=== PATIENT | male | born 1970 | race Hispanic/Latino ===

== ENCOUNTER 2018-04-11 11:24 | Day surgery (SDC) | payer SELFPAY ==
[2018-04-10 09:13] VITALS: BMI 36.9
[~2018-04-11 11:24] MED LIST: ceFAZolin IV 1 gm in Dextrose 0 GM/0 ML BAG IVPB ONE
[2018-04-11] MEDS ORDERED: Bupivacaine HCl 0.5% PF (30 ml) Inj ONE (13:36)
[2018-04-11] MEDS ORDERED: ceFAZolin IV 1 gm in Dextrose 1 GM/50 ML BAG IVPB ONE ×2 (13:36→13:49)
[2018-04-11] MEDS ORDERED: Midazolam 2 MG/2 ML VIAL ONE (13:41)
[2018-04-11] MEDS ORDERED: Propofol 10 mg/ml Inj (20 ML) ONE (13:41)
[2018-04-11] MEDS ORDERED: Lidocaine Hydrochloride 5 ML INJ ONE (13:41)
[2018-04-11] MEDS: Bupivacaine 0.25% 20 ML INJ IJ ONE ×2 (14:04→14:44)
[2018-04-11] MEDS: Bacitracin 500 Units/gm Oint Foilpak UD ONE ×2 (14:05→14:44)
--- NOTE | 2018-04-11 14:51 | PCM.SURG1 ---
Surgeon's Initial Post Op Note - Surgeon's Notes Surgeon: mora Payable Manager: none Type of Anesthesia: General Endo Anesthesia Administered By: Pre-Operative Diagnosis: phimosis. Operative Findings: phimosis Post-Operative Diagnosis: phimosis Operation Performed: circumcision Specimen/Specimens Removed: foreskin Estimated Blood Loss: EBL {In ML}: 5 Blood Products Given: N/A Drains Used: No Drains Post-Op Condition: Good Date of Surgery/Procedure: 04/11/18 Time of Surgery/Procedure: 14:52
[2018-04-11] MEDS ORDERED: Lactated Ringer's 1,000 ML IV SCH (15:15)
[2018-04-11] MEDS ORDERED: HYDROmorphone 0.5 mg/0.5 ml ISec IVP PRN (15:15)
[2018-04-11 16:33] VITALS: RESP 16
[2018-04-11 18:14] VITALS: BP 113/68; PULSE 75; TEMP 98; O2SAT 99
--- NOTE | 2018-04-13 01:39 | OP ---
PROCEDURE DATE: 04/11/2018 PREOPERATIVE DIAGNOSIS: Phimosis. POSTOPERATIVE DIAGNOSIS: Phimosis. FINDINGS: Phimosis, chronic inflammation of prepuce, meatal opening, adequate. SURGEON: Raf Cardenas MD GROSS FINDINGS: Phimosis, redundant foreskin, and mild inflammation with the prepuce. TECHNIQUE: This patient was placed in supine position. The external genitalia were prepped and draped in the usual sterile fashion. A dorsal and ventral slit incisions were performed. Two flaps of mucosa on the skin were developed. These two flaps were excised. Bleeders were thoroughly fulgurated. Some bleeders were clamped and ligated with 3-0 chromic. Then, the mucosa of the skin were reapproximated with interrupted stitches of 3-0 chromic. No bleeding was present after the procedure. Marcaine 0.25% were infiltrated in the base of the penis. Bacitracin ointment was applied at the line of suturing. Dressing was applied. The patient withstood the procedure well and returned to recovery room in satisfactory condition. Raf Cardenas MD
== END 2018-04-11 18:43 | disposition home or self-care (01) ==
LOC: C.SDS 11:24
PROVIDERS: ATTEND Urology
DX: N47.1 Phimosis (principal); N39.0 Urinary tract infection, site not specified
CPT/HCPCS: 54161; 88304; J0690; J1170; J2250; J2704; J3010

== ENCOUNTER 2018-06-22 17:58 | Emergency (ER) | payer SELFPAY ==
[2018-06-22 17:58] VITALS: BMI 36.9
[2018-06-22 18:12] VITALS: BP 127/79; PULSE 60; RESP 20; TEMP 98.5; O2SAT 100
--- NOTE | 2018-06-22 18:49 | C.PDOC ---
History Of Present Illness 47 y/o M c no PMHx p/w chest pain x 2 days. State began over 24 hours ago. L sided, nonradiating. Denies fever, chills, cough, dyspnea, nausea, vomiting, diaphoresis, trauma. Time Seen by Provider: 06/22/18 18:32 Chief Complaint (Nursing): Chest Pain Past Medical History Vital Signs: Last Vital Signs Temp 98.5 F 06/22/18 18:09 Pulse 60 06/22/18 18:09 Resp 20 06/22/18 18:09 BP 127/79 06/22/18 18:09 Pulse Ox 100 06/22/18 18:09 - Medical History PMH: Anxiety Denies: Chronic Kidney Disease Family History: States: No Known Family Hx - Social History Hx Alcohol Use: No Hx Substance Use: No Review Of Systems Except As Marked, All Systems Reviewed And Found Negative. Constitutional: Negative for: Fever Respiratory: Negative for: Shortness of Breath Physical Exam - Physical Exam Additional Physical Exam Comments: Constitutional: No acute distress. Head: Normocephalic. Atraumatic. Eyes: PERRL. ENT: Moist mucous membranes. Neck: Supple. Cardiovascular: Regular rate. Radial pulse 2+ bilaterally. Chest: No tenderness. Respiratory: Clear to auscultation bilaterally. GI: Soft. Nontender. Nondistended. Back: No CVA tenderness. Musculoskeletal: No tenderness or swelling of extremities. Skin: No rash. Neurologic: Alert, no focal deficit. ED Course And Treatment - Laboratory Results Result Diagrams: 06/22/18 19:06 06/22/18 19:06 O2 Sat by Pulse Oximetry: 100 Medical Decision Making Medical Decision Making: EKG Sinus rhythm, 60 bpm, no ST/T wave changes. CXR no acute disease. Discharged home, f/u primary care, return to ED for worsening pain, dyspnea, or any other problem. Disposition - Disposition Disposition: HOME/ ROUTINE Disposition Time: 20:24 Condition: STABLE Instructions: Chest Pain, Chest Pain That Is Not Caused by the Heart (DC) Forms: [facility] [employer] ([place]) - Clinical Impression Clinical Impression: Chest pain
[2018-06-22 19:09] LABS: BASO # 0.1 K/uL (0.0-0.2); BASO % 0.7 % (0.0-2.0); EOS # 0.3 K/uL (0.0-0.7); EOS % 3.2 % (0.0-4.0); HEMOGLOBIN 14.5 g/dL (12.0-18.0); LYMPH # 3.9 K/uL (1.0-4.3); LYMPH % 45.9 % (20.0-40.0); MEAN CELL VOLUME 86.9 fL (80.0-94.0); MEAN CORPUSCULAR HEMOGLOBIN 29.7 pg (27.0-31.0); MEAN CORPUSCULAR HGB CONC 34.2 g/dL (33.0-37.0); MEAN PLATELET VOLUME 8.7 fL (7.2-11.7); MONO # 0.7 K/uL (0.0-0.8); MONO % 8.6 % (0.0-10.0); NEUT # 3.5 K/uL (1.8-7.0); NEUT % 41.6 % (50.0-75.0); NRBC % 0.1 % (0.0-2.0); RBC 4.86 Mil/uL (4.40-5.90); RED CELL DISTRIBUTION WIDTH 12.7 % (11.5-14.5); WHITE BLOOD COUNT 8.4 K/uL (4.8-10.8)
[2018-06-22 19:24] LABS: ALB/GLOB RATIO 1.9 (1.0-2.1); ALBUMIN 4.7 g/dL (3.5-5.0); ALT/SGPT 30 U/L (21-72); AST/SGOT 34 U/L (17-59); BLOOD UREA NITROGEN 17 mg/dL (9-20); CALCIUM 8.9 mg/dl (8.6-10.4); GFR NON-AFRICAN AMERICAN > 60
[2018-06-22 19:35] LABS: CK-MB 3.21 ng/mL (0.0-3.38)
--- NOTE | 2018-06-23 10:12 | RAD ---
HISTORY: chest pain COMPARISON: None available. TECHNIQUE: Chest PA and lateral FINDINGS: LUNGS: No focal consolidation. Please note that chest x-ray has limited sensitivity for the detection of pulmonary masses. PLEURA: No significant pleural effusion identified. No definite pneumothorax . CARDIOVASCULAR: Heart size appears within normal limits. No atherosclerotic calcification present. OSSEOUS STRUCTURES: Degenerative changes. Mild compression fracture deformities of the lower thoracic spine, age indeterminate. VISUALIZED UPPER ABDOMEN: Unremarkable. OTHER FINDINGS: None. IMPRESSION: No focal consolidation. Degenerative changes. Mild compression fracture deformities of the lower thoracic spine, age indeterminate.
--- NOTE | 2018-06-23 14:13 | CARD ---
APPROVED REPORT Date of service: 06/22/2018 EKG Measurement Heart [id number] <Conclusion> Sinus bradycardia,u waves Otherwise normal ECG
== END 2018-06-22 20:34 | disposition home or self-care (01) ==
LOC: C.ER 17:58
DX: R07.9 Chest pain, unspecified (principal)

== ENCOUNTER 2018-09-09 21:03 | Emergency (ER) | payer SELFPAY ==
[2018-09-09 21:03] VITALS: BMI 36.9
[2018-09-09 21:20] VITALS: BP 133/80; PULSE 74; TEMP 98; O2SAT 100
--- NOTE | 2018-09-09 21:51 | C.PDOC ---
History Of Present Illness 48 year old male presents to the ED c/o intermittent palpitations for the past few days. Patient denies fever, chills, headache, visual changes, SOB, CP, rash, weakness, numbness. Chief Complaint (Nursing): Chest Pain History Per: Patient History/Exam Limitations: no limitations Onset/Duration Of Symptoms: Days, Intermittent Episodes Current Symptoms Are (Timing): Still Present Recent travel outside of the [place]: No Additional History Per: Patient Past Medical History Reviewed: Historical Data, Nursing Documentation, Vital Signs Vital Signs: Last Vital Signs Temp 98.0 F 09/09/18 21:10 Pulse 74 09/09/18 21:10 Resp 18 09/09/18 21:10 BP 133/80 09/09/18 21:10 Pulse Ox 100 09/09/18 21:10 Primary Care Provider: Katty Damon - Medical History PMH: Anxiety, HTN Denies: Chronic Kidney Disease Surgical History: No Surg Hx Family History: States: Unknown Family Hx - Social History Hx Alcohol Use: Yes Hx Substance Use: No - Immunization History Hx Tetanus Toxoid Vaccination: No Hx Influenza Vaccination: Yes Hx Pneumococcal Vaccination: No Review Of Systems Constitutional: Negative for: Fever, Chills Eyes: Negative for: Vision Change Cardiovascular: Positive for: Palpitations. Negative for: Chest Pain Respiratory: Negative for: Cough, Shortness of Breath Gastrointestinal: Negative for: Nausea, Vomiting, Abdominal Pain Skin: Negative for: Rash Neurological: Negative for: Weakness, Numbness, Headache, Dizziness Physical Exam - Physical Exam Appears: Non-toxic, No Acute Distress Skin: Normal Color, Warm, Dry Head: Atraumatic, Normacephalic Eye(s): bilateral: Normal Inspection, PERRL, EOMI Neck: Normal ROM, Supple Chest: Symmetrical Cardiovascular: Rhythm Regular Respiratory: Normal Breath Sounds, No Rales, No Rhonchi, No Wheezing Gastrointestinal/Abdominal: Soft, No Tenderness, No Guarding, No Rebound Extremity: Normal ROM, No Tenderness, No Swelling Neurological/Psych: Oriented x3, Normal Speech, Normal Cognition Gait: Steady ED Course And Treatment - Laboratory Results Result Diagrams: 09/09/18 22:01 09/09/18 22:01 O2 Sat by Pulse Oximetry: 100 (ON RA) Pulse Ox Interpretation: Normal Medical Decision Making Medical Decision Making: Plan: * EKG * Labs * CXR Disposition Counseled Patient/Family Regarding: Diagnosis - Disposition Referrals: at [facility] [Outside] Disposition: HOME/ ROUTINE Disposition Time: 22:51 Condition: STABLE Instructions: Palpitations (DC) Forms: [facility] (Sammarinese), Gen Discharge Inst Polish Print Language: BERMUDIAN - POA Present On Arrival: None - Clinical Impression Clinical Impression: Intermittent palpitations - Scribe Statement The provider has reviewed the documentation as recorded by the Scribe Aditya Bunch All medical record entries made by the Scribe were at my direction and personally dictated by me. I have reviewed the chart and agree that the record accurately reflects my personal performance of the history, physical exam, me dical decision making, and the department course for this patient. I have also personally directed, reviewed, and agree with the discharge instructions and disposition.
[2018-09-09 22:04] LABS: BASO % 0.6 % (0.0-2.0); EOS # 0.3 K/uL (0.0-0.7); EOS % 3.7 % (0.0-4.0); HEMOGLOBIN 13.4 g/dL (12.0-18.0); LYMPH # 3.7 K/uL (1.0-4.3); LYMPH % 46.4 % (20.0-40.0); MEAN CELL VOLUME 85.8 fL (80.0-94.0); MEAN CORPUSCULAR HEMOGLOBIN 29.6 pg (27.0-31.0); MEAN CORPUSCULAR HGB CONC 34.5 g/dL (33.0-37.0); MEAN PLATELET VOLUME 7.7 fL (7.2-11.7); MONO # 0.7 K/uL (0.0-0.8); MONO % 9.3 % (0.0-10.0); NEUT # 3.2 K/uL (1.8-7.0); RBC 4.54 Mil/uL (4.40-5.90); RED CELL DISTRIBUTION WIDTH 12.5 % (11.5-14.5)
[2018-09-09 22:29] LABS: ALB/GLOB RATIO 1.7 (1.0-2.1); ALBUMIN 4.1 g/dL (3.5-5.0); ALT/SGPT 33 U/L (21-72); AST/SGOT 25 U/L (17-59); B-TYPE NATRIURETIC PEPTIDE 19.3 pg/mL (0-450); BLOOD UREA NITROGEN 23 mg/dL (9-20); CALCIUM 8.9 mg/dl (8.6-10.4); GFR NON-AFRICAN AMERICAN > 60
[2018-09-09 23:12] VITALS: RESP 20
--- NOTE | 2018-09-10 07:28 | RAD ---
Date of service: 09/09/2018 HISTORY: chest pain COMPARISON: Chest radiographs 06/22/2018. TECHNIQUE: Chest PA and lateral views FINDINGS: LUNGS: No active pulmonary disease. PLEURA: No significant pleural effusion identified. No pneumothorax apparent. CARDIOVASCULAR: No aortic atherosclerotic calcification present. Normal cardiac size. No pulmonary vascular congestion. OSSEOUS STRUCTURES: No significant abnormalities. VISUALIZED UPPER ABDOMEN: Normal. OTHER FINDINGS: None. IMPRESSION: No interval acute cardiopulmonary disease appreciated.
--- NOTE | 2018-09-10 11:16 | CARD ---
APPROVED REPORT Date of service: 09/09/2018 EKG Measurement Heart [id number] <Conclusion> Sinus rhythm with 1st degree AV block Nonspecific T wave abnormality Abnormal ECG
== END 2018-09-09 23:12 | disposition home or self-care (01) ==
LOC: C.ER 21:03
DX: R00.2 Palpitations (principal); I10 Essential (primary) hypertension